=== PATIENT | male | born 1975 | race African-American/Black ===

== ENCOUNTER → 2023-11-22 | Day surgery (SDC) | payer MEDICARE ==
[~2023-11-22] MED LIST: ATORVASTATIN CA10 MG PO; AZOR 10-40 MG1 EACH PO; BUPROPION HCL100 MG PO; ESMOLOL HCL 100MG/10ML 10 MG/ML VIAL ONE; FENTANYL CITRATE/PF 100MCG/2 ML INJ ONE; HYOSCYAMINE SULFATE 0.5 MG/ML INJ ONE; LACTATED RINGER'S 1,000 ML ONE; LIDOCAINE HCL 2% LOCAL INJ 5 ML SDV VIAL INJ ONE; MELOXICAM7.5 MG PO; METHOCARBAMOL750 MG PO; METOCLOPRAMIDE HCL 10 MG/2ML VIAL ONE; PHENTERMINE H37.5 M1 PO; PROPOFOL IV EMULSION 10 MG/ML 50 ML VIAL IV ONE; PROTONIX20 MG PO; VIAGRA25 MG PO; XYZAL5 MG
[2023-11-22 10:29] VITALS: TEMP 97.3
[2023-11-22 11:00] VITALS: BP 130/95; PULSE 88; RESP 16; O2SAT 96
== END | disposition home or self-care (01) ==
LOC: OR 06:45
PROVIDERS: ATTEND Internal Medicine Gastroenterology
DX: K29.50 Unspecified chronic gastritis without bleeding (principal); D12.2 Benign neoplasm of ascending colon; K31.89 Other diseases of stomach and duodenum; K21.9 Gastro-esophageal reflux disease without esophagitis; K62.5 Hemorrhage of anus and rectum; K20.90 Esophagitis, unspecified without bleeding; K44.9 Diaphragmatic hernia without obstruction or gangrene; K59.09 Other constipation; K28.9 Gastrojejunal ulcer, unspecified as acute or chronic, without hemorrhage or perforation; K57.30 Diverticulosis of large intestine without perforation or abscess without bleeding; K64.8 Other hemorrhoids; Z71.3 Dietary counseling and surveillance; I10 Essential (primary) hypertension; E78.5 Hyperlipidemia, unspecified; J45.909 Unspecified asthma, uncomplicated; M54.9 Dorsalgia, unspecified; Z01.810 Encounter for preprocedural cardiovascular examination; Z79.1 Long term (current) use of non-steroidal anti-inflammatories (NSAID); Z79.899 Other long term (current) drug therapy; Z68.36 Body mass index [BMI] 36.0-36.9, adult
CPT/HCPCS: 43239; 45385; 93005; J1980; J2001; J2470; J2704; J2765; J3010; J7121; 45378